=== PATIENT | male | born 1965 | race Caucasian/White ===

== ENCOUNTER 2018-03-14 20:46 | Emergency (ER) | payer OTHER ==
--- NOTE | 2018-03-14 21:05 | ED ---
General Adult HPI - General Source: patient, family, police, EMS, RN notes reviewed Mode of arrival: EMS Limitations: no limitations <Peter Scruggs - Last Filed: 03/14/18 21:03> <Jesus Richards - Last Filed: 03/15/18 06:04> <Alfredo Riley - Last Filed: 03/15/18 08:22> - General Chief complaint: Psychiatric Symptoms Stated complaint: Mental Health Time Seen by Provider: 03/14/18 20:53 - History of Present Illness Initial comments: Patient is a 53-year-old male presenting to the emergency department for mental health evaluation. Patient was found with a cord around his neck and the ceiling and he was on a table. Patient has not yet fallen off to hang himself. Patient omits to being depressed and having suicidal thoughts. No homicidal thoughts. No hallucinations. Patient was drinking alcohol earlier. No street drug use. Patient is brought in by police. (Peter Scruggs) - Related Data Home Medications Medication Instructions Recorded Confirmed DULoxetine HCL [Cymbalta] 60 mg PO DAILY 03/14/18 03/14/18 Allergies Allergy/AdvReac Type Severity Reaction Status Date / Time No Known Allergies Allergy Verified 03/14/18 21:00 Review of Systems ROS Other: All systems not noted in ROS Statement are negative. Constitutional: Denies: fever Eyes: Denies: eye pain ENT: Denies: ear pain Respiratory: Denies: cough Cardiovascular: Denies: chest pain Endocrine: Denies: fatigue Gastrointestinal: Denies: abdominal pain Genitourinary: Denies: dysuria Musculoskeletal: Denies: back pain Skin: Denies: rash Neurological: Denies: headache Psychiatric: Reports: depression, suicidal thoughts. Denies: auditory hallucinations, visual hallucinations, homicidal thoughts <Peter Scruggs - Last Filed: 03/14/18 21:03> ROS Other: All systems not noted in ROS Statement are negative. <Jesus Richards - Last Filed: 03/15/18 06:04> ROS Other: All systems not noted in ROS Statement are negative. <Alfredo Riley - Last Filed: 03/15/18 08:22> ROS Statement: Those systems with pertinent positive or pertinent negative responses have been documented in the HPI. Past Medical History Past Medical History: Hyperlipidemia, Hypertension Additional Past Medical History / Comment(s): restless leg syndrome History of Any Multi-Drug Resistant Organisms: None Reported Additional Past Surgical History / Comment(s): right hand surgery, penile reconstruction, Past Psychological History: Depression Smoking Status: Former smoker Past Alcohol Use History: Occasional Past Drug Use History: Marijuana <Peter Scruggs - Last Filed: 03/14/18 21:03> General Exam Limitations: no limitations General appearance: alert, in no apparent distress Head exam: Present: atraumatic Eye exam: Present: normal appearance, PERRL ENT exam: Present: normal oropharynx Neck exam: Present: other (Minimal erythema anterior neck without swelling or tenderness). Absent: tenderness Respiratory exam: Present: normal lung sounds bilaterally Cardiovascular Exam: Present: regular rate, normal rhythm GI/Abdominal exam: Present: soft. Absent: tenderness Extremities exam: Present: normal inspection Neurological exam: Present: alert. Absent: motor sensory deficit Expanded Sensory exam: Upper Extremity Light Touch: Normal Motor strength exam: RUE: 5, LUE: 5 Psychiatric exam: Present: flat affect Skin exam: Present: abrasion (Horizontal anterior neck without swelling or tenderness.) <Peter Scruggs - Last Filed: 03/14/18 21:03> Vital Signs 03/14/18 03/14/18 03/15/18 20:49 23:15 06:00 Temperature 97.3 F L 98.4 F Pulse Rate 70 84 60 Respiratory 18 18 16 Rate Blood Pressure 146/81 101/56 100/64 O2 Sat by Pulse 93 L 94 L Oximetry Medical Decision Making <Peter Scruggs - Last Filed: 03/14/18 21:03> - Lab Data Result diagrams: 03/15/18 05:07 03/15/18 05:07 <Jesus Richards - Last Filed: 03/15/18 06:04> - Lab Data Result diagrams: 03/15/18 05:07 03/15/18 05:07 <Alfredo Riley - Last Filed: 03/15/18 08:22> - Medical Decision Making I was asked to complete a clinical certification for this patient. I did interview the patient and have completed the paperwork. (Jesus Richards) - Lab Data Lab Results 03/14/18 03/15/18 03/15/18 Range/Units 21:08 01:08 05:07 WBC (3.8-10.6) k/uL RBC (4.30-5.90) m/uL Hgb (13.0-17.5) gm/dL Hct (39.0-53.0) % MCV (80.0-100.0) fL MCH (25.0-35.0) pg MCHC (31.0-37.0) g/dL RDW (11.5-15.5) % Plt Count (150-450) k/uL Sodium 142 (137-145) mmol/L Potassium 3.9 (3.5-5.1) mmol/L Chloride 111 H (98-107) mmol/L Carbon Dioxide 22 (22-30) mmol/L Anion Gap 9 mmol/L BUN 13 (9-20) mg/dL Creatinine 0.78 (0.66-1.25) mg/dL Est GFR (CKD-EPI)AfAm >90 (>60 ml/min/1.73 sqM) Est GFR (CKD-EPI)NonAf >90 (>60 ml/min/1.73 sqM) Glucose 84 (74-99) mg/dL Calcium 9.0 (8.4-10.2) mg/dL Urine Color Colorless Urine Appearance Clear (Clear) Urine pH 5.5 (5.0-8.0) Ur Specific Struthers 1.004 (1.001-1.035) Urine Protein Negative (Negative) Urine Glucose (UA) Negative (Negative) Urine Ketones Negative (Negative) Urine Blood Negative (Negative) Urine Nitrite Negative (Negative) Urine Bilirubin Negative (Negative) Urine Urobilinogen <2.0 (<2.0) mg/dL Ur Leukocyte Esterase Negative (Negative) Urine Opiates Screen Not Detected (NotDetected) Ur Oxycodone Screen Not Detected (NotDetected) Urine Methadone Screen Not Detected (NotDetected) Ur Propoxyphene Screen Not Detected (NotDetected) Ur Barbiturates Screen Not Detected (NotDetected) U Tricyclic Antidepress Not Detected (NotDetected) Ur Phencyclidine Scrn Not Detected (NotDetected) Ur Amphetamines Screen Not Detected (NotDetected) U Methamphetamines Scrn Not Detected (NotDetected) U Benzodiazepines Scrn Not Detected (NotDetected) Urine Cocaine Screen Not Detected (NotDetected) U Marijuana (THC) Screen Not Detected (NotDetected) 03/15/18 Range/Units 05:07 WBC 5.0 (3.8-10.6) k/uL RBC 4.74 (4.30-5.90) m/uL Hgb 14.9 (13.0-17.5) gm/dL Hct 43.3 (39.0-53.0) % MCV 91.3 (80.0-100.0) fL MCH 31.3 (25.0-35.0) pg MCHC 34.3 (31.0-37.0) g/dL RDW 12.8 (11.5-15.5) % Plt Count 233 (150-450) k/uL Sodium (137-145) mmol/L Potassium (3.5-5.1) mmol/L Chloride (98-107) mmol/L Carbon Dioxide (22-30) mmol/L Anion Gap mmol/L BUN (9-20) mg/dL Creatinine (0.66-1.25) mg/dL Est GFR (CKD-EPI)AfAm (>60 ml/min/1.73 sqM) Est GFR (CKD-EPI)NonAf (>60 ml/min/1.73 sqM) Glucose (74-99) mg/dL Calcium (8.4-10.2) mg/dL Urine Color Urine Appearance (Clear) Urine pH (5.0-8.0) Ur Specific Struthers (1.001-1.035) Urine Protein (Negative) Urine Glucose (UA) (Negative) Urine Ketones (Negative) Urine Blood (Negative) Urine Nitrite (Negative) Urine Bilirubin (Negative) Urine Urobilinogen (<2.0) mg/dL Ur Leukocyte Esterase (Negative) Urine Opiates Screen (NotDetected) Ur Oxycodone Screen (NotDetected) Urine Methadone Screen (NotDetected) Ur Propoxyphene Screen (NotDetected) Ur Barbiturates Screen (NotDetected) U Tricyclic Antidepress (NotDetected) Ur Phencyclidine Scrn (NotDetected) Ur Amphetamines Screen (NotDetected) U Methamphetamines Scrn (NotDetected) U Benzodiazepines Scrn (NotDetected) Urine Cocaine Screen (NotDetected) U Marijuana (THC) Screen (NotDetected) Disposition <Peter Scruggs - Last Filed: 03/14/18 21:03> <Jesus Richards - Last Filed: 03/15/18 06:04> Is patient prescribed a controlled substance at d/c from ED?: No <Alfredo Riley - Last Filed: 03/15/18 08:22> Clinical Impression: Depression, Suicidal ideation, Mood disorder Disposition: TRANSFER TO PSYCH HOSP/UNIT Condition: Stable Referrals: Shantanu Main Jr, [Primary Care Provider] - 1-2 days
[2018-03-14 21:26] LABS: Amphetamine Screen,Urine Not Detected (NotDetected); Barbiturate Screen,Urine Not Detected (NotDetected); Benzodiazepines Screen,Urine Not Detected (NotDetected); Cocaine Screen,Urine Not Detected (NotDetected); Methadone Screen, Urine Not Detected (NotDetected); Opiate Screen,Urine Not Detected (NotDetected); Oxycodone Screen, Urine Not Detected (NotDetected); Phencyclidine Screen,Urine Not Detected (NotDetected); Tricyclic Antidepressant,Urine Not Detected (NotDetected); Urn Cannabinoid Scrn Not Detected (NotDetected)
[2018-03-15 05:15] LABS: HCT 43.3 % (39.0-53.0); HGB 14.9 gm/dL (13.0-17.5); MCH 31.3 pg (25.0-35.0); MCHC 34.3 g/dL (31.0-37.0); MCV 91.3 fL (80.0-100.0); Mean Platelet Volume 6.5; Platelet Count 233 k/uL (150-450); RBC 4.74 m/uL (4.30-5.90); RDW 12.8 % (11.5-15.5)
[2018-03-15 05:31] LABS: Appearance,Urine Clear (Clear); Bilirubin,Urine Negative (Negative); Blood,Urine Negative (Negative); Color,Urine Colorless; Glucose,Urine (UA) Negative (Negative); Ketones,Urine Negative (Negative); Leukocyte Esterase,Urine Negative (Negative); Nitrite,Urine Negative (Negative); PH, Urine 5.5 (5.0-8.0); Protein,Urine Negative (Negative); Specific Gravity,Urine 1.004 (1.001-1.035); Urobilinogen,Urine <2.0 mg/dL (<2.0)
[2018-03-15 05:48] LABS: Sodium 142 mmol/L (137-145)
[2018-03-15 05:50] LABS: Anion Gap 9 mmol/L; Blood Urea Nitrogen 13 mg/dL (9-20); Carbon Dioxide 22 mmol/L (22-30); Chloride 111 mmol/L (98-107); Glucose 84 mg/dL (74-99); Potassium 3.9 mmol/L (3.5-5.1)
[2018-03-15 06:20] VITALS: TEMP 98.4
[2018-03-15 09:08] VITALS: BP 118/62; PULSE 68; RESP 18
== END 2018-03-15 10:02 ==
LOC: EC 20:46
DX: F32.9 Major depressive disorder, single episode, unspecified (principal); R45.851 Suicidal ideations; S10.91XA Abrasion of unspecified part of neck, initial encounter; Z87.891 Personal history of nicotine dependence; Z79.899 Other long term (current) drug therapy; X83.8XXA Intentional self-harm by other specified means, initial encounter
CPT/HCPCS: 36415; 80048; 80306; 81003; 82075; 85027; 99285

== ENCOUNTER → 2019-12-07 | Outpatient (CLI) | payer OTHER ==
--- NOTE | 2019-12-08 22:56 | CT ---
EXAMINATION TYPE: CT abdomen pelvis wo con DATE OF EXAM: 12/07/2019 COMPARISON: None HISTORY: 54-year-old male R31.9, Hematuria and bilateral inguinal pain. CT DLP: 303.1 mGycm. Automated exposure control for dose reduction was used. TECHNIQUE: Contiguous axial scanning of the abdomen and pelvis without IV contrast. Coronal and sagit antonella reconstructions performed. FINDINGS: Heart normal size with trace anterior pericardial fluid measuring 8 mm thick. Lung bases clear withou t pleural effusion. 1.7 cm hypodense lesion left hepatic dome, likely a cyst. Otherwise, noncontrast appearance of the li inderjit, gallbladder, adrenal glands, spleen, and pancreas show no gross abnormal body. Kidneys show no evidence for nephrolithiasis or hydronephrosis. A few scattered prominent but nonenlarged mesenteric lymph nodes measuring up to 7 mm. No dilated small bowel, free fluid, or free air. Normal appendix. No significant stool burden. Moderate circumferential bladder wall thickening. Prostate gland measures 4.2 cm wide. No abnormal fl uid collection in the pelvis or pelvic lymphadenopathy. No inguinal hernia is identified. Bones: Mild degenerative change at the hips. Posterior disc bulge at L5-S1. No osseous destructive pr ocess. IMPRESSION: 1. No nephrolithiasis or hydronephrosis. 2. Some circumferential bladder wall thickening could represent chronic bilateral hypertrophy or cys titis. Clinically correlate. 3. Mild prostatomegaly and 4.2 cm wide.
== END | disposition home or self-care (01) ==
LOC: RADCTMAIN 12:41
PROVIDERS: ATTEND Family Medicine
DX: N40.0 Benign prostatic hyperplasia without lower urinary tract symptoms (principal)
CPT/HCPCS: 74176

== ENCOUNTER → 2022-09-02 | Outpatient (CLI) | payer OTHER ==
--- NOTE | 2022-09-02 16:16 | MR ---
EXAMINATION TYPE: MR cspine/lspine wo con DATE OF EXAM: 09/02/2022 COMPARISON: CT abdomen and pelvis December 07, 2019 HISTORY: Neck/Rt shoulder pain into arm, Low back pain into rt lower extremity TECHNIQUE: Multiplanar, multisequence imaging of the cervical and lumbar spine are performed without IV contrast. FINDINGS: Cervical spine: FINDINGS: Sagittal images of the cervical spine show the craniocervical junction to appear within nor mal limits. The cervical and upper thoracic spinal cord is normal in caliber and signal. There is so me reversal of normal cervical curvature. There is grade 1 retrolisthesis C5 on C6 and C6 on C7. The vertebral body and intravertebral disk heights are normal. The bone marrow signal intensity is with in normal limits. Axial images show C2-C3 through the C4-C5 levels to appear within normal limits. Axial images at C5-C6 levels with spondylolisthesis with broad-based posterior disc protrusion mildly effacing the anterior thecal sac and causing asymmetric moderate to advanced left and mild to modera te right-sided neural foraminal narrowing. Axial images at C6-C7 level showed broad based posterior disc protrusion effacing anterior thecal sac and causing moderate to advanced bilateral neural foraminal narrowing. Axial images at C7-T1 level appear within normal limits. IMPRESSION: Loss of normal cervical curvature with spondylolisthesis and degenerative change at C5-C6 and C6-C7 levels as detailed above. Lumbar spine: Sagittal images of the lumbar spine show vertebral body heights and alignment to appear stable and sa tisfactory. There is multilevel disc desiccation with mild disc space narrowing at L5-S1 level. The conus medullaris is normal in position and signal ending at mid L1 level. The bone marrow signal int ensity is within normal limits. Axial images show T12-L1 level to appear within normal limits. Axial images at L1-L2 level show mild broad disc bulge minimally effacing anterior thecal sac. Patent bilateral neural foramina. Axial images at L2-L3 level show mild broad disc bulge minimally effacing anterior thecal sac with pa tent bilateral neural foramina. Axial images at L3-L4 level appear within normal limits. Axial images at L4-L5 level show mild/moderate broad-based posterior disc protrusion mildly effacing the anterior thecal sac and moderate facet degenerative changes bilaterally. There is mild to moderat e right-sided anterior inferior neural foraminal narrowing due to right foraminal disc protrusion com ponent. Axial images at L5-S1 level show mild facet arthropathy bilaterally. There is focal central disc prot rusion and posterior annular tear but spinal canal is preserved and there is increased epidural fat a t this level. Bilateral neural foramina are patent. Paraspinal muscle bulk is maintained. IMPRESSION: Multilevel degenerative change in the lumbar spine as detailed above
== END | disposition home or self-care (01) ==
LOC: RADMRIMAIN 13:10
PROVIDERS: ATTEND Family Medicine
DX: M47.26 Other spondylosis with radiculopathy, lumbar region (principal); M47.22 Other spondylosis with radiculopathy, cervical region; M43.12 Spondylolisthesis, cervical region; M50.122 Cervical disc disorder at C5-C6 level with radiculopathy
CPT/HCPCS: 72141; 72148

== ENCOUNTER → 2022-09-02 | Outpatient (CLI) | payer OTHER ==
--- NOTE | 2022-09-03 13:03 | CA ---
Transthoracic Echo Report Name: Ayaz Beaver Age: 57 Gender: M : 1965 Exam Date: 09/02/2022 14:50 Exam Location: [place] [facility] Ht (in): 66 Wt (lb): 157 Ordering Physician: Shantanu Main DO Attending/Referring Phys: Fiber Analyst Felicity Ford RDCS Procedure CPT: Indications: R07.89 Cardiac Hx: Technical Quality: Good Contrast 1: Total Dose (mL): Contrast 2: Total Dose (mL): MEASUREMENTS (Male / Female) Normal Values 2D ECHO LV Diastolic Diameter PLAX 4.5 cm 4.2 - 5.9 / 3.9 - 5.3 cm LV Systolic Diameter PLAX 2.9 cm IVS Diastolic Thickness 1.1 cm 0.6 - 1.0 / 0.6 - 0.9 cm LVPW Diastolic Thickness 1.1 cm 0.6 - 1.0 / 0.6 - 0.9 cm LV Relative Wall Thickness 0.5 RV Internal Dim ED PLAX 2.9 cm LA Systolic Diameter LX 3.2 cm 3.0 - 4.0 / 2.7 - 3.8 cm LV Diastolic Volume MOD BP 48.8 cm??? 67 - 155 / 56 - 104 cm??? LV Systolic Volume MOD BP 26.0 cm??? 22 - 58 / 19 - 49 cm??? LV Ejection Fraction MOD BP 46.7 % >= 55 % LV Diastolic Volume MOD 4C 52.7 cm??? LV Systolic Volume MOD 4C 26.8 cm??? LV Ejection Fraction MOD 4C 49.1 % LV Diastolic Length 4C 6.7 cm LV Systolic Length 4C 6.4 cm LV Diastolic Volume MOD 2C 46.5 cm??? LV Systolic Volume MOD 2C 24.3 cm??? LV Ejection Fraction MOD 2C 47.7 % LV Diastolic Length 2C 6.7 cm LV Systolic Length 2C 6.0 cm LA Volume 28.6 cm??? 18 - 58 / 22 - 52 cm??? M-MODE Aortic Root Diameter MM 3.4 cm MV E Point Septal Separation 0.8 cm AV Cusp Separation MM 2.0 cm DOPPLER AV Peak Velocity 124.1 cm/s AV Peak Gradient 6.2 mmHg MV Area PHT 3.4 cm??? Mitral E Point Velocity 68.0 cm/s Mitral A Point Velocity 78.3 cm/s Mitral E to A Ratio 0.9 MV Deceleration Time 226.4 ms MV E' Velocity 8.5 cm/s Mitral E to MV E' Ratio 8.0 TR Peak Velocity 200.3 cm/s TR Peak Gradient 16.0 mmHg Right Ventricular Systolic Press 20.6 mmHg FINDINGS Left Ventricle Left ventricular ejection fraction is estimated at 50-55 %. Left ventricular cavity size normal. Borderline left ventricular hypertrophy. Right Ventricle Normal right ventricular size and function. Right ventricular systolic pressure within normal limits. Right Atrium Normal right atrial size. Left Atrium Normal left atrial size. Mitral Valve Structurally normal mitral valve. Trace to mild mitral regurgitation. Aortic Valve Trileaflet aortic valve. No aortic valve stenosis or regurgitation. Tricuspid Valve Structurally normal tricuspid valve. Trace tricuspid regurgitation. Pulmonic Valve Structurally normal pulmonic valve. No pulmonic regurgitation. Pericardium Normal pericardium. No pericardial effusion. Aorta Normal size aortic root and proximal ascending aorta. CONCLUSIONS Normal LV systolic function Normal RV systolic function Overall normal intracardiac valves Previewed by: Dr. Alex Yoder MD (Electronically Signed) Final Date: 03 September 2022 13:02
== END | disposition home or self-care (01) ==
LOC: RADECHMAIN 13:14
PROVIDERS: ATTEND Family Medicine
DX: R07.89 Other chest pain (principal)
CPT/HCPCS: 93306